=== PATIENT | male | born 1980 | race Caucasian/White ===

== ENCOUNTER 2020-12-06 11:13 | Inpatient (IN) | payer MEDICAID ==
[~2020-12-06] VITALS: Ht 185.4 cm; Wt 58.0 kg
--- NOTE | 2020-12-06 11:16 | NUR ---
patient arrives from skilled nursing with sob and chest pain with inspiration. he reports weakness. he went to [facility] two days ago, and states he's had no improvement. medics report stach and gave 250 ml ns and helped hr go down to 100. he hasn't been eating well, and feels like neck lymph swollen. medics report fsbs 250
[2020-12-06] MEDS ORDERED: KETOROLAC 30 MG/1 ML ONE (11:41)
[2020-12-06] MEDS ORDERED: SODIUM CHLORIDE 0.9% 1,000ML IVBOLUS ONE (12:00)
[2020-12-06] MEDS ORDERED: KETOROLAC 30 MG/1 ML IVPush ONE (12:00)
[2020-12-06] MEDS ORDERED: SODIUM CHLORIDE FLUSH 10ML SYR IVF ONE (12:00)
[2020-12-06 12:20] LABS: MEAN CORPUSCULAR HEMOGLOBIN 29.4 pg (27.5-34.5); MEAN PLATELET VOLUME 6.9 fL (7.4-10.4); PLATELET COUNT 656 x10^3/uL (130-400); RED BLOOD COUNT 3.74 x10^6/uL (4.38-5.82); RED CELL DISTRIBUTION WIDTH 13.5 % (9.4-14.8)
[2020-12-06 12:30] LABS: ALANINE AMINOTRANSFERASE 39 U/L (12-78); ALBUMIN 1.8 g/dL (3.4-5.0); ANION GAP 4 mmol/L (5-15); CALCIUM 8.6 mg/dL (8.5-10.1); CHLORIDE 101 mmol/L (98-107); CREATININE 0.77 mg/dL (0.7-1.3)
[2020-12-06] MEDS: PLEASE ENTER ALLERGIES MC SCH ×2 (12:32→20:00)
[2020-12-06 12:33] LABS: ALKALINE PHOSPHATASE 365 U/L (45-117); BILIRUBIN,TOTAL 0.5 mg/dL (0.2-1.0); TOTAL PROTEIN 7.1 g/dL (6.4-8.2)
--- NOTE | 2020-12-06 12:51 | NUR ---
got patient warm blanket feet. he's hungry, will await results. pain improved.
[2020-12-06] MEDS ORDERED: OMNIPAQUE 350 MG/ML, 100ML BOTTLE ONE (12:53)
[2020-12-06 12:56] LABS: BAND#(MANUAL) 0.49 x10^3/uL; BANDS%(MANUAL) 2 % (0-7); LYMPH#(MANUAL) 1.96 x10^3/uL (1-3.4); LYMPHS% (MANUAL) 8 % (22-44); MONOS#(MANUAL) 2.21 x10^3/uL (0.3-2.7); MONOS% (MANUAL) 9 % (2-9); SEG#(MANUAL) 19.85 x10^3/uL (1.8-6.8); SEGS% (MANUAL) 81 % (42-75)
[2020-12-06 12:58] LABS: <PLATELET ESTIMATE> INCREASED; <PLT MORPHOLOGY> NORMAL PLT MORPH; <RBC MORPHOLOGY> NORMAL
[2020-12-06 13:17] LABS: ACETONE, SERUM Negative (Negative)
--- NOTE | 2020-12-06 14:23 | NUR ---
patient resting calmly
[2020-12-06] MEDS ORDERED: AMPICILLIN/SULBACTAM 3 GM in SODIUM CHLORIDE 0.9% 100 ML IV ONE (14:30)
--- NOTE | 2020-12-06 15:14 | NUR ---
REPORT RECEIVED FROM TIFFANY MIRELES. PT RESTING IN [facility], [facility] NOTED. ERP AT BEDSIDE TO DISCUSS POC (CONSULT ENT, LIKELY DC). PT COOPERATIVE AND DEMONSTRATES UNDERSTANDING. AIRWAY PATENT, PT MANAGING SECRETIONS.
[2020-12-06] MEDS ORDERED: MORPHINE SULFATE 4 MG/ML, 1ML ONE (15:28)
[2020-12-06] MEDS ORDERED: morphine SULFATE 10 MG/ML, 1ML IVPush ONE (15:30)
--- NOTE | 2020-12-06 15:38 | NUR ---
MEDICATED PER EMAR FOR 10/15 THROAT PAIN. BP/SPO2/ECG MONITORING IN PLACE. ABX CONTINUES TO INFUSE, NO S/S OF ABX RXN
[2020-12-06] MEDS ORDERED: DEXAMETHASONE 4 MG/ML, 1ML IVPush ONE (16:00)
[2020-12-06] MEDS ORDERED: DEXAMETHASONE 4 MG/ML, 1ML ONE (16:39)
[2020-12-06] MEDS ORDERED: DEXTROSE 4 GM TAB.CHEW PO PRN (17:00)
[2020-12-06] MEDS ORDERED: hydrALAzine 20 MG/ML, 1ML IV PRN (17:00)
[2020-12-06] MEDS ORDERED: ONDANSETRON 2MG/ML, 2ML IVPush PRN (17:00)
[2020-12-06] MEDS ORDERED: NS + 20MEQ KCL 1,000 ML IV SCH (17:00)
[2020-12-06] MEDS ORDERED: SENNA/DOCUSATE TABLET PO PRN (17:00)
[2020-12-06] MEDS ORDERED: ACETAMINOPHEN 325 MG TABLET PO PRN (17:00)
[2020-12-06] MEDS ORDERED: POLYETHYLENE GLYCOL 17 GM PACKET PO PRN (17:00)
[2020-12-06] MEDS ORDERED: ONDANSETRON ODT 4 MG PO PRN (17:00)
[2020-12-06] MEDS ORDERED: ENOXAPARIN 40 MG/0.4 ML SQ SCH (17:00)
[2020-12-06] MEDS ORDERED: GLUCAGON 1 MG IM PRN (17:00)
[2020-12-06] MEDS ORDERED: NICOTINE 7 MG/24 HR PATCH.TD24 TD SCH (17:00)
[2020-12-06] MEDS ORDERED: DEXTROSE 50%, 50ML SYRINGE IVPush PRN (17:00)
[2020-12-06] MEDS ORDERED: AMLO-211 PO (18:01)
[2020-12-06] MEDS ORDERED: INSULIN SQ (18:02)
--- NOTE | 2020-12-06 18:12 | NUR ---
REPORT TO [employer] PROFESSOR. PT PREPARED FOR TRANSPORT
[2020-12-06 19:42] VITALS: BP 142/93
[2020-12-06] MEDS: LISINOPRIL 20 MG TABLET PO SCH (20:04)
[2020-12-06] MEDS: SODIUM CHLORIDE FLUSH 10ML SYR IVF SCH (20:05)
[2020-12-06] MEDS: HYDROcodone/APAP 5/325 TABLET PO PRN (20:05)
[2020-12-06] MEDS ORDERED: LIDOCAINE 1%-EPI 1:100K, 20ML INFIL ONE (20:30)
[2020-12-06] MEDS: INSULIN LISPRO 100 UNITS/ML, PEN SQ-INSULIN SCH ×2 (20:45→21:00)
[2020-12-06] MEDS: AMPICILLIN/SULBACTAM 3 GM in SODIUM CHLORIDE 0.9% 100 ML IV SCH (20:45)
[2020-12-06] MEDS ORDERED: INSULIN GLARGINE 100 UNITS/ML, PEN SQ-INSULIN SCH (21:00)
[2020-12-06 22:25] VITALS: BP 142/93
[2020-12-06] MEDS ORDERED: NPH,100V SQ (22:55)
[2020-12-06] MEDS ORDERED: INSU100I11 SQ (22:55)
[2020-12-07 00:33] VITALS: BP 150/93
[2020-12-07] MEDS: HYDROcodone/APAP 5/325 TABLET PO PRN ×2 (02:38→10:19)
[2020-12-07] MEDS: AMPICILLIN/SULBACTAM 3 GM in SODIUM CHLORIDE 0.9% 100 ML IV SCH ×3 (02:38→15:23)
[2020-12-07 06:39] VITALS: BP 130/80
[2020-12-07] MEDS: LISINOPRIL 20 MG TABLET PO SCH (07:51)
[2020-12-07] MEDS: INSULIN LISPRO 100 UNITS/ML, PEN SQ-INSULIN SCH ×2 (08:19→12:22)
[2020-12-07] MEDS: SODIUM CHLORIDE FLUSH 10ML SYR IVF SCH (08:22)
[2020-12-07] MEDS ORDERED: AMOX1TAB64 PO (09:33)
[2020-12-07] MEDS ORDERED: LISI-170 PO (09:33)
[2020-12-07] MEDS ORDERED: HYDR-2214 PO (09:33)
[2020-12-07 10:45] LABS: MEAN CORPUSCULAR HEMOGLOBIN 29.3 pg (27.5-34.5); MEAN CORPUSCULAR HGB CONC 32.4 g/dL (33.2-36.2); MEAN PLATELET VOLUME 7.5 fL (7.4-10.4); PLATELET COUNT 594 x10^3/uL (130-400); RED CELL DISTRIBUTION WIDTH 13.6 % (9.4-14.8)
[2020-12-07 10:54] LABS: ALBUMIN 1.5 g/dL (3.4-5.0); ANION GAP 5 mmol/L (5-15); CALCIUM 8.4 mg/dL (8.5-10.1); CHLORIDE 105 mmol/L (98-107)
[2020-12-07 10:58] LABS: ALANINE AMINOTRANSFERASE 94 U/L (12-78); ALKALINE PHOSPHATASE 413 U/L (45-117); BILIRUBIN,TOTAL 0.9 mg/dL (0.2-1.0); CREATININE 0.74 mg/dL (0.7-1.3); TOTAL PROTEIN 6.2 g/dL (6.4-8.2)
[2020-12-07 11:25] LABS: <PLATELET ESTIMATE> INCREASED; <PLT MORPHOLOGY> NORMAL PLT MORPH; <RBC MORPHOLOGY> NORMAL; BAND#(MANUAL) 0.23 x10^3/uL; BANDS%(MANUAL) 1 % (0-7); LYMPH#(MANUAL) 4.64 x10^3/uL (1-3.4); LYMPHS% (MANUAL) 20 % (22-44); METAMYELOCYTES# (MANUAL) 0.23 x10^3/uL (0-0); METAMYELOCYTES% (MANUAL) 1 % (0-1); MONOS#(MANUAL) 1.62 x10^3/uL (0.3-2.7); MONOS% (MANUAL) 7 % (2-9); SEG#(MANUAL) 16.47 x10^3/uL (1.8-6.8); SEGS% (MANUAL) 71 % (42-75)
[2020-12-07 14:42] VITALS: BP 164/90
== END 2020-12-07 16:54 | disposition left against medical advice (07) | DRG 872 ==
LOC: ED 13:02 → EDIP 16:44 → 3N 19:37
PROVIDERS: ADMIT Family Medicine; ATTEND Family Medicine
DX: A41.9 Sepsis, unspecified organism (principal); E46 Unspecified protein-calorie malnutrition; Z68.1 Body mass index [BMI] 19.9 or less, adult; E10.65 Type 1 diabetes mellitus with hyperglycemia; I10 Essential (primary) hypertension; J03.00 Acute streptococcal tonsillitis, unspecified; R47.02 Dysphasia; R74.01 Elevation of levels of liver transaminase levels; Z72.0 Tobacco use; Z79.4 Long term (current) use of insulin; Z91.19 Patient's noncompliance with other medical treatment and regimen
CPT/HCPCS: 36415; 70491; 71045; 80053; 82010; 82962; 83036; 83605; 84145; 85025; 86308; 87040; 87070; 87147; 87205; 87880; 93005; 96361; 96365; 96375; G0378; J0295; J1100; J1885; J3480; Q9967; J1815; J2270; J7030